=== PATIENT | female | born 1955 | race Caucasian/White ===

== ENCOUNTER 2018-09-28 12:10 | Emergency (ER) | payer MEDICARE ==
[~2018-09-28] VITALS: Ht 175.3 cm; Wt 63.5 kg
[~2018-09-28 12:10] MED LIST: ATIVAN1 MG PO; NORCO 10-325 T1 EACH PO; PERCOCET 10-321 EACH PO; PROZAC40 MG PO; ROBAXIN-750750 MG PO
--- NOTE | 2018-09-28 13:32 | Diagnostic Imaging Report ---
Exam: Left wrist radiographs - 3 views. History: Fall Comparison: None. Findings: There is a minimally displaced, mildly dorsally angulated, likely comminuted fracture of the distal radial metaphysis. There is possible intra-articular extension. Mild surrounding soft tissue edema. Carpal alignment is maintained. There is a minimally displaced fracture of the ulnar styloid process. Small high density fragment along the dorsal wrist may reflect sequela of prior trauma without definite donor site. Impression: Minimally displaced, dorsally angulated, likely comminuted fracture of the distal radial metaphysis. Possible intra-articular extension. Minimally displaced fracture of the ulnar styloid process. Small high density fragment along the dorsal wrist may reflect sequela of prior carpal trauma or tiny avulsion fracture, although without definite donor site. Signed by: Dr. Flor Roy MD on 09/28/2018 1:28 PM
--- NOTE | 2018-09-28 13:36 | Diagnostic Imaging Report ---
Exam: Left elbow radiographs - 3 views History: Trauma, fall Comparison: None. Findings: No evidence of displaced fracture or malalignment. Possible small joint effusion. Impression: No evidence of displaced fracture or malalignment. Possible small elbow joint effusion. If clinical concern for occult fracture, follow up radiographs may be obtained in 7-10 days. Signed by: Dr. Flor Roy MD on 09/28/2018 1:32 PM
[2018-09-28 13:53] VITALS: BP 113/74
== END 2018-09-28 14:00 | disposition home or self-care (01) ==
LOC: ER 12:10
DX: M25.532 Pain in left wrist (principal); S52.352A Displaced comminuted fracture of shaft of radius, left arm, initial encounter for closed fracture; S52.202A Unspecified fracture of shaft of left ulna, initial encounter for closed fracture; W01.0XXA Fall on same level from slipping, tripping and stumbling without subsequent striking against object, initial encounter; Y92.008 Other place in unspecified non-institutional (private) residence as the place of occurrence of the external cause; M79.7 Fibromyalgia; K58.9 Irritable bowel syndrome, unspecified; Z98.84 Bariatric surgery status; Z98.1 Arthrodesis status
CPT/HCPCS: 99283

== ENCOUNTER 2019-07-20 11:38 | Observation (INO) | payer MEDICARE ==
[~2019-07-20] VITALS: Ht 175.3 cm; Wt 79.4 kg
[2019-07-20] VITALS (7 sets, daily range): BP systolic 149–173; BP diastolic 76–85
--- OUTSIDE RECORDS SUMMARY | 2019-07-20 11:40 | XMS REPORT ---
Author Author [facility] Address Unknown Phone Unavailable Care Team Providers Care Night Worker Name Role Phone Mckayla GUSTAFSON Unavailable Unavailable Problems This patient has no known problems. Allergies, Adverse Reactions, Alerts This patient has no known allergies or adverse reactions. Medications This patient has no known medications. Results Test Description Test Time Test Comments Text Results Atomic Results Result Comments ELBOW LEFT COMPLETE 2018-09-28 13:27:00 [place] [address] Patient Name: IVANNA JONES MR #: [id number] : 1955 Age/Sex: 62/F Req #: [id number] Adm Physician: Ordered by: KULDEEP SIMON SUPERVISOR POWER REACTOR Report #: [id number] Location: ER Room/Bed: Procedure: [id number] DX/ELBOW LEFT COMPLETE Exam Date: 09/28/18 Exam Time: 1245 REPORT STATUS: Signed Exam: Left elbow radiographs - 3 views History: T rauma, fall Comparison: None. Findings: No evidence of displaced fracture or malalignment. Possible small joint effusion. Impression: No evidence of displaced fracture or malalignment. Possible small elbow joint effusion. If clinical concern for occult fracture, follow up radiographs may be obtained in 7-10 days. Signed by: Dr. Moon Sierra MD on 09/28/2018 1:32 PM Dictated By: MOON SIERRA MD [id number] Transcribed By: NILESH on 09/28/18 133 COPY TO: KULDEEP SIMON SUPERVISOR POWER REACTOR WRIST COMPLETE LEFT 2018-09-28 13:19:00 [facility] [address] [address] Patient Name: IVANNA JONES MR #: [id number] : 1955 Age/Sex: 62/F Req #: [id number] Adm Physician: Ordered by: JOSH GUSTAFSON MD Report #: [id number] Location: ER Room/Bed: Procedure: [id number] DX/WRIST COMPLETE LEFT Exam Date: 09/28/18 Exam Time: 1245 REPORT STATUS: Signed Exam: Left wrist radiographs - 3 views. History: Fall Comparison: None. Findings: There is a minimally displaced, mildly dorsally angulated, likely comminuted fracture of the distal radial metaphysis. There is possible intra-articular extension. Mild surrounding soft tissue edema. Carpal alignment is maintained. There is a minimally displaced fracture of the ulnar styloid process. Small high density fragment along the dorsal wrist may reflect sequela of prior trauma without definite donor site. Impression: Minimally displaced, dorsally angulated, likely comminuted fracture of the distal radial metaphysis. Possible intra-articular extension. Minimally displaced fracture of the ulnar styloid process. Small high density fragment along the dorsal wrist may reflect sequela of prior carpal trauma or tiny avulsion fracture, although without definite donor site. Signed by: Dr. Moon Sierra MD on 09/28/2018 1:28 PM Dictated By: MOON SIERRA MD 1328 Transcribed By: NILESH on 09/28/18 [id number] COPY TO: JOSH GUSTAFSON MD
[2019-07-20] MEDS ORDERED: SODIUM CHLORIDE 0.9% 1000ML 1,000 ML IV STA (11:56)
[2019-07-20] MEDS ORDERED: ONDANSETRON HCL INJ 2MG/ML 2ML 2 MG/ML VIAL IV NR (12:00)
--- NOTE | 2019-07-20 12:06 | NUR ---
PER LAB URINE SPILLED, LID NOT TIGHT
[2019-07-20 12:35] LABS: BASOPHILS % 0.2 % (0.0-1.0); EOSINOPHILS % 8.6 % (0.0-6.0); HEMATOCRIT 46.7 % (34.2-44.1); HEMOGLOBIN 13.9 g/dL (12.0-16.0); LYMPHOCYTES # (AUTO) 3.3 (1.0-3.2); LYMPHOCYTES % 30.2 % (18.0-39.1); MEAN CORPUSCULAR HEMOGLOBIN 22.1 pg (28-32); MEAN CORPUSCULAR HGB CONC 29.8 g/dL (31-35); MEAN CORPUSCULAR VOLUME 74.2 fL (81-99); MONOCYTES # (AUTO) 0.8 (0.2-0.8); MONOCYTES % 6.8 % (4.4-11.3); PLATELET COUNT 337 x10e3/uL (140-360); RED BLOOD COUNT 6.29 x10e6/uL (3.6-5.1); RED CELL DISTRIBUTION WIDTH 20.1 % (11.7-14.4)
[2019-07-20 12:49] LABS: ALANINE AMINOTRANSFERASE 15 IU/L (0-55); ALBUMIN 4.4 g/dL (3.5-5.0); ALBUMIN/GLOBULIN RATIO 1.3 (0.8-2.0); ALKALINE PHOSPHATASE 84 IU/L (40-150); AMYLASE 40 U/L (25-125); ANION GAP 16.9 mmol/L (8-16); BLOOD UREA NITROGEN < 5 mg/dL (7-26); CALCIUM 9.9 mg/dL (8.4-10.2); CARBON DIOXIDE 28 mmol/L (22-29); CHLORIDE 91 mmol/L (98-107); CREATINE KINASE 69 IU/L (29-168); CREATININE, SERUM 0.64 mg/dL (0.57-1.11); EST GLOMERULAR FILTRATION RATE > 60 ML/MIN (60-); GLUCOSE 108 mg/dL (74-118); LIPASE 39 U/L (8-78); POTASSIUM 3.9 mmol/L (3.5-5.1); SODIUM 132 mmol/L (136-145)
[2019-07-20 12:50] LABS: BUN/CREATININE RATIO 8 (6-25)
--- NOTE | 2019-07-20 13:17 | Diagnostic Imaging Report ---
EXAMINATION: CHEST SINGLE (PORTABLE) COMPARISON: None INDICATION: Back pain, nausea, vomiting ^ERMD ORDER ^[id number] ^1248 ^Y DISCUSSION: Frontal view of the chest obtained at 1248 hours. HEART AND MEDIASTINUM: The cardiomediastinal silhouette is unremarkable. LINES: None. LUNGS: The lungs are well inflated and clear. No pneumonia or pulmonary edema. PLEURA: No pleural effusion or pneumothorax. BONES AND SOFT TISSUES: Sclerotic lesion in the distal left clavicle measures 9 mm suggestive of a bone island. The soft tissues are normal. IMPRESSION: No acute cardiopulmonary disease. Signed by: Dr. Nito Munoz MD on 07/20/2019 1:14 PM
[2019-07-20 13:53] LABS: BILIRUBIN,URINE NEGATIVE (NEGATIVE); CLARITY,URINE CLEAR (CLEAR); COLOR,URINE YELLOW (YELLOW); KETONES,URINE NEGATIVE (NEGATIVE); LEUKOCYTE ESTERASE ,URINE NEGATIVE (NEGATIVE); NITRITE,URINE NEGATIVE (NEGATIVE); PROTEIN,URINE DIPSTICK NEGATIVE (NEGATIVE); URINE UROBILINOGEN 0.2 mg/dL (0.2 - 1)
[2019-07-20 13:57] LABS: BENZODIAZEPINES SCREEN,URINE POSITIVE (NEGATIVE)
[2019-07-20 13:58] LABS: AMPHETAMINES SCREEN,URINE N (NEGATIVE); PHENCYCLIDINE SCREEN,URINE N (NEGATIVE)
[2019-07-20 14:01] LABS: BACTERIA,URINE RARE /HPF; EPITHELIAL CELLS,URINE FEW /LPF; RBC,URINE 0-5 /HPF (0-5); WBC,URINE (MAN) 0-5 /HPF (0-5)
--- NOTE | 2019-07-20 14:11 | Diagnostic Imaging Report ---
CT Abdomen And Pelvis with Intravenous Contrast INDICATION: 7 hour car ride. Nausea, vomiting, diarrhea ^abd pain TECHNIQUE: Thin collimation axial images obtained from the diaphragm to the level of the pubic symphysis following the uneventful administration of 100 cc of low osmolar, nonionic intravenous contrast. Dose reduction techniques used: Automated exposure control, adjustment of the mAs and/or kVp according to patient size, standardized low-dose protocol, and/or iterative reconstruction technique. RADIATION DOSE: Total DLP: 222.24 mGy*cm Estimated effective dose: (DLP x 0.015 x size factor) mSv CTDIvol has been reviewed. It is below the limits set by the Radiation Protocol Committee (RPC). COMPARISON: None. ABDOMEN FINDINGS: Images are mildly motion degraded. Lung Bases: Trace lingula or atelectasis. The heart is mildly enlarged. No pericardial or pleural effusions. Liver: Normal attenuation. No evidence for mass. Gallbladder: Present and appears normal. No biliary ductal dilatation. Pancreas: Normal attenuation without mass or ductal dilatation. Spleen: Normal in size. No evidence of mass.. Adrenal Glands: No evidence for mass. Kidneys: Right: Normal enhancement. Lower pole cyst measures 8 mm. No hydronephrosis. Left: Normal enhancement. No soft tissue mass. No hydronephrosis. Lymph Nodes: No enlarged abdominal or periaortic lymph nodes. Aorta: Diffusely calcified and mildly tortuous. Maximum diameter is 2.4 cm PELVIS FINDINGS: Bowel: Stomach: Collapsed and contains chain sutures. Small Bowel: Chain sutures in the proximal small bowel. No evidence of dilatation or abnormal mural enhancement Large Bowel: Collapsed. No significant stool burden.. Appendix: Not visualized and may be absent or collapsed. Bladder: Well distended and normal. The uterus is absent. No adnexal mass Peritoneum/retroperitoneum: No free fluid or fluid collection.. Bones: Minimal degenerative changes of the spine. No focal osseous lesions. IMPRESSION: 1. Postoperative changes of the stomach and small bowel suggestive of bariatric surgery. No evidence of bowel obstruction or inflammation. Nonvisualization of the appendix if present 2. Atherosclerosis and mild aortic tortuosity. Signed by: Dr. Nito Munzo MD on 07/20/2019 2:08 PM
[2019-07-20] MEDS ORDERED: ASPIRIN 81 MG CHEW TAB PO ONE (14:15)
[2019-07-20] MEDS ORDERED: METHOCARBAMOL750 MG (14:17)
[2019-07-20] MEDS ORDERED: GABAPENTIN300 MG PO ×2 (14:17→20:04)
[2019-07-20] MEDS ORDERED: TRAZODONE HCL50 MG (14:17)
[2019-07-20] MEDS ORDERED: LINZESS290 MCG PO (14:17)
[2019-07-20] MEDS ORDERED: TYLENOL # 31 EA (14:17)
[2019-07-20] MEDS ORDERED: OXYCODONE-ACET1 EAC3 (14:17)
[2019-07-20] MEDS: SODIUM CHLORIDE 0.9% 1000ML 1,000 ML IV SCH ×2 (14:18→15:00)
[2019-07-20] MEDS ORDERED: HYDROCODONE/APAP 7.5MG-325MG 1 EA TAB PO PRN (14:30)
[2019-07-20] MEDS ORDERED: HYDRALAZINE HCL 20 MG/ML VIAL IV PRN (14:30)
[2019-07-20] MEDS ORDERED: DIPHENHYDRAMINE HCL INJ 50 MG/ML VIAL IV PRN (14:30)
[2019-07-20] MEDS ORDERED: PROMETHAZINE 25MG/ NS 50ML (IV) IV PRN (14:30)
--- NOTE | 2019-07-20 14:40 | NUR ---
RCD PT FROM ER BY BED PT IS ALERT AND ORIENTED VITALS CHECKED PT C/O PAIN ON THE BACK 01/27 ,PAIN MEDS GIVEN ADMISSION ASSESSMENT AND HISTORY DONE IV PATENT BY SALINE FLUSH STARTED IV FLUID NS 100 ML /HR ,INSTRUCTED PT REGARDING HOSPITAL POLICY AND ROUTINE BED LOW AND LOCKED CALL LIGHT IN REACH
[2019-07-20] MEDS ORDERED: SODIUM CHLORIDE 0.9% 50ML 50 ML ONE (15:10)
[2019-07-20] MEDS ORDERED: IOPAMIDOL 370 MG/ML 200 ML INFUS..BTL INJ ONE (15:11)
[2019-07-20] MEDS: ONDANSETRON HCL INJ 2MG/ML 2ML 2 MG/ML VIAL IV PRN (15:33)
[2019-07-20] MEDS: FAMOTIDINE 20 MG/2 ML VIAL IV SCH (17:00)
[2019-07-20 17:15] LABS: CREATINE KINASE MB 1.5 ng/mL (0-5.0)
--- NOTE | 2019-07-20 18:40 | NUR ---
PT RESTING ON BED BED SIDE REPORT GIVEN TO ONCOMING NURSE
[2019-07-20] MEDS ORDERED: ZOLPIDEM TARTRATE 5 MG TAB PO PRN (21:00)
[2019-07-20] MEDS: LORAZEPAM 1 MG TAB PO SCH (21:22)
[2019-07-20] MEDS: HYDROCODONE/APAP 10MG-325MG TAB PO PRN (21:22)
[2019-07-20] MEDS: ACETAMINOPHEN 325 MG TAB PO PRN (21:23)
[2019-07-21] VITALS (8 sets, daily range): BP systolic 130–160; BP diastolic 65–78
[2019-07-21] MEDS: ONDANSETRON HCL INJ 2MG/ML 2ML 2 MG/ML VIAL IV PRN ×3 (02:09→21:04)
[2019-07-21] MEDS: ACETAMINOPHEN 325 MG TAB PO PRN ×2 (03:26→20:13)
[2019-07-21] MEDS: HYDROCODONE/APAP 10MG-325MG TAB PO PRN ×4 (03:26→22:25)
[2019-07-21] MEDS: SODIUM CHLORIDE 0.9% 1000ML 1,000 ML IV SCH (03:33)
[2019-07-21 05:18] LABS: BASOPHILS % 0.3 % (0.0-1.0); EOSINOPHILS # (AUTO) 0.5 (0.0-0.4); EOSINOPHILS % 4.5 % (0.0-6.0); HEMOGLOBIN 12.2 g/dL (12.0-16.0); LYMPHOCYTES # (AUTO) 2.6 (1.0-3.2); LYMPHOCYTES % 23.8 % (18.0-39.1); MEAN CORPUSCULAR HEMOGLOBIN 22.4 pg (28-32); MEAN CORPUSCULAR HGB CONC 29.8 g/dL (31-35); MEAN CORPUSCULAR VOLUME 75.4 fL (81-99); MONOCYTES % 9.1 % (4.4-11.3); NEUTROPHILS # (AUTO) 6.8 (2.1-6.9); PLATELET COUNT 312 x10e3/uL (140-360); RED BLOOD COUNT 5.44 x10e6/uL (3.6-5.1); RED CELL DISTRIBUTION WIDTH 19.2 % (11.7-14.4)
[2019-07-21 05:40] LABS: ANION GAP 13.3 mmol/L (8-16); BLOOD UREA NITROGEN 5 mg/dL (7-26); BUN/CREATININE RATIO 9 (6-25); CALCIUM 9.1 mg/dL (8.4-10.2); CARBON DIOXIDE 26 mmol/L (22-29); CHLORIDE 89 mmol/L (98-107); CREATININE, SERUM 0.57 mg/dL (0.57-1.11); EST GLOMERULAR FILTRATION RATE > 60 ML/MIN (60-); GLUCOSE 118 mg/dL (74-118); POTASSIUM 3.3 mmol/L (3.5-5.1); SODIUM 125 mmol/L (136-145)
[2019-07-21 06:07] LABS: CREATINE KINASE MB 1.9 ng/mL (0-5.0)
--- NOTE | 2019-07-21 07:00 | NUR ---
BEDSIDE SHIFT REPORT RECEIVED FROM THE AUDITOR MEDICAL CLAIMS RN. EDUCATED PT ABOUT FALL PRECAUTIONS. CALL LIGHT WITH IN EASY REACH. INSTRUCTED PT TO USE CALL LIGHT FOR ALL THE NEEDS. PT VERBALIZED UNDERSTANDING. BED IS LOW AND LOCKED. SIDE RAILS X2. BED ALARM IS ON. PT DENIES NEEDS AT THIS TIME.
[2019-07-21] MEDS: GABAPENTIN 300 MG CAP PO SCH (08:29)
[2019-07-21] MEDS: FAMOTIDINE 20 MG/2 ML VIAL IV SCH ×2 (08:29→17:14)
--- NOTE | 2019-07-21 08:30 | NUR ---
PAGED DR. MCFADDEN AND INFORMED PT NA AND K LEVELS.
[2019-07-21] MEDS: LORAZEPAM 1 MG TAB PO SCH ×2 (09:52→20:12)
[2019-07-21 10:15] LABS: ANION GAP 13.2 mmol/L (8-16); BLOOD UREA NITROGEN < 5 mg/dL (7-26); CALCIUM 9.3 mg/dL (8.4-10.2); CARBON DIOXIDE 28 mmol/L (22-29); CHLORIDE 88 mmol/L (98-107); CREATININE, SERUM 0.56 mg/dL (0.57-1.11); EST GLOMERULAR FILTRATION RATE > 60 ML/MIN (60-); GLUCOSE 106 mg/dL (74-118); POTASSIUM 3.2 mmol/L (3.5-5.1); SODIUM 126 mmol/L (136-145)
[2019-07-21 10:18] LABS: BUN/CREATININE RATIO 9 (6-25)
[2019-07-21] MEDS ORDERED: POTASSIUM CHLORIDE 20 MEQ TAB CR PO ONE (11:30)
[2019-07-21] MEDS: METHOCARBAMOL 750 MG TAB PO SCH ×3 (12:30→20:12)
[2019-07-21] MEDS: ENOXAPARIN SOD INJ 40 MG/0.4 ML SYR SC SCH (17:14)
--- NOTE | 2019-07-21 18:10 | History and Physical ---
CHIEF COMPLAINT: Abdominal pain, nausea and vomiting. No reports of any chest pain. HISTORY OF PRESENT ILLNESS: This is a 63-year-old female, who apparently has chronic pain, takes significant amount of narcotics at home as well as sedating medications. Of note, she reports having history of fibromyalgia, being managed by her primary care physician, comes into the emergency room with complaints of abdominal pain, nausea, vomiting, and generalized pain throughout. The patient reports that her pain is constant and this has been ongoing for several years now, being managed by the PCP. As for abdominal pain describes more epigastric, but currently no more pain. She reports having some nausea and vomiting, but that all resolved. She did report having some diarrhea, but now today she had one mushy stool and has improved. She reports having decreased oral intake as well. In relation to her chest pain, it seems to be more atypical. She reports that she did not really truly have chest pain, she felt more epigastric abdominal pain. Cardiology has been consulted. The patient was seen and evaluated at bedside on the medical floor, currently doing well with no other issues at this time. REVIEW OF SYSTEMS: Pertinent positives: Questionable chest pain. Abdominal pain with nausea, vomiting, diarrhea. Pertinent negatives: Denies any palpitation, dysuria, hematuria, frequency, urgency, lightheadedness, dizziness, cough, congestion, fever, or any other complaints. The rest of 14-point review of systems are reviewed with the patient and are negative. ALLERGIES: FLOXIN, CIPROFLOXACIN AND IBUPROFEN. HOME MEDICATIONS: Robaxin 750 mg p.o. q.i.d., Linzess 290 mcg daily, gabapentin 300 mg in the morning, 600 mg at night, [place] 10 one tab every 4 hours as needed for pain, Ativan 1 mg p.o. b.i.d. PAST MEDICAL HISTORY: Chronic pain syndrome, has a history of fibromyalgia. PAST SURGICAL HISTORY: Reports none. FAMILY HISTORY: Hypertension, diabetes. SOCIAL HISTORY: No drugs. No alcohol. Does not smoke. Good social support. PHYSICAL EXAMINATION: VITAL SIGNS: Temperature is 98, pulse 72, respiratory rate is 18, blood pressure is 160/78, pulse ox 95% on room air. GENERAL: Not in acute distress. Alert and oriented x3. Cooperative on examination. HEENT: Head; normocephalic, atraumatic. Eyes; pupils are equal, round, and reactive to light bilaterally. Extraocular movements intact bilaterally. Throat; no evidence of erythema or exudates in the posterior pharynx. Has poor dentition. NECK: Supple. Good range of motion. PULMONARY: Clear to auscultation bilaterally. No wheezing, no rales, no rhonchi, no crackles appreciated. CARDIOVASCULAR: Positive S1 and S2. No murmurs, rubs, or gallops appreciated. ABDOMEN: Soft, nondistended, and nontender to palpation. Bowel sounds present. MUSCULOSKELETAL: Strength is 5/5 throughout. No evidence of any muscle deficits on examination. No weakness appreciated. NEUROLOGIC: Cranial nerve 2 through 12 grossly intact. No evidence of any neurological deficits on exam. SKIN: Intact. Warm to touch. Good cap refill. PSYCHIATRIC: Normal affect and mood. EXTREMITIES: No edema. Good range of motion throughout. LABORATORY FINDINGS: Show white count 11, hemoglobin 12.2, hematocrit of 41, platelets of 312. Chemistry; sodium 126, potassium 3.2, chloride 88, bicarb 20, anion gap of 13, BUN is 5, creatinine is 0.56, glucose 106, calcium 9.3. LFTs within normal range. Troponins are all negative, albumin 4.4, lipase is 39. Urine drug screen positive for benzodiazepines. Urinalysis was negative. MICROBIOLOGY: None. IMAGING DATA: Chest x-ray was negative. CT abdomen and pelvis shows postoperative changes of the stomach and small bowel, suggestive of bariatric surgery. No evidence of bowel obstruction or inflammation. Nonvisualization of the appendix is present. Aortic sclerosis and mild aortic tortuosity. IMPRESSION: 1. Chest pain, likely atypical in nature. 2. Viral gastroenteritis. 3. Nausea, vomiting and diarrhea-resolved. 4. Decreased oral intake. 5. Hyponatremia. 6. Hypokalemia. PLAN: At this time, in relation to her chest pain, it seems to be more atypical in nature and less likely to be cardiac in nature. Cardiac enzymes were negative. Continue cardioprotective medications and Cardiology was consulted. As for her viral gastroenteritis, we will continue with IV fluids, antinausea medication and pain control. Her diarrhea improved. Her white count is stable. Continue with clear liquid diet. Advance as tolerated. In relation to her hyponatremia, I am not sure if this is a chronic finding or acute, as on admission her sodium was 132 and then downtrended to 126. Not sure if there is a component of SIADH contributing to that finding, but we will go ahead and get a urine sodium, urine osmolality, serum osmolality. Continue with IV fluids. Replace potassium. Get a.m. labs including magnesium level. Put on Lovenox for DVT prophylaxis. PT and OT evaluation. I did resume all her home medications at this time. Department Chair is just Cardiology. MD YOLY Astorga/JOYCELYN /[id number]
--- NOTE | 2019-07-21 19:00 | NUR ---
PAGED DR. MCFADDEN AND UPDATED THE SODIUM LEVEL.
--- NOTE | 2019-07-21 19:01 | NUR ---
BEDSIDE SHIFT REPORT GIVEN TO THE SENIOR COMPLIANCE ANALYST RN. PT DENIED FURTHER NEEDS.
--- NOTE | 2019-07-21 19:25 | NUR ---
RECEIVED PATIENT. PATIENT IS AAOX3, RESTING IN BED. RESP EVEN AND UNLABORED. NO ACUTE DISTRESS NOTED. TELE IN PLACE. CALL LIGHT WITHIN REACH. INSTRUCT TO CALL FOR ASSISTANCE. BED LOW/LOCKED. CONTINUE TO MONITOR CLOSELY
[2019-07-21] MEDS ORDERED: GABAPENTIN 300 MG CAP PO SCH (21:00)
--- NOTE | 2019-07-21 21:00 | NUR ---
OBTAINED CONSENT FORM FOR STRESS TEST
[2019-07-22 00:03] VITALS: BP 110/59
[2019-07-22] MEDS: SODIUM CHLORIDE 0.9% 1000ML 1,000 ML IV SCH (00:30)
--- NOTE | 2019-07-22 00:37 | Consultation ---
DATE OF CONSULTATION: Cardiac consultation REASON FOR CONSULTATION: Chest pain. HISTORY OF PRESENT ILLNESS: Unfortunate 63-year-old lady, who is known with chronic pain and fibromyalgia. She takes narcotic and other medication to ease her pain. Her pain is very severe. She is followed by her PCP. She came to this institution complaining of nausea, vomiting, and generalized aches and pain. She is also complaining of severe chest pain. The chest pain with typical and atypical characteristic. She is feeling better today with resolution of her vomiting. She still have some nausea. Regarding her chest pain, she cannot describe it. It is very vague. Sometimes it is worse with activity, sometimes it can come anytime. There is no pleuritic nor pericardiac component of chest pain. There is no orthopnea. There are no congestive heart failure symptoms. There is palpitation, but no syncope. Dizzy spells frequently. Leg edema at times. REVIEW OF SYSTEMS: Extensive to all systems, will be summarized for clarity. GENERAL: No fever, no chills. HEENT: No vision, no hearing problem. PULMONARY/CARDIAC: As per acute illness. GI: Abdominal pain, nausea, vomiting, diarrhea alternating with constipation. No hematemesis. No melena. : Increased frequency of urination. MUSCULOSKELETAL: Aches and pain all over. The patient cannot tolerate her pain. Her pain is very severe. HEMATOLOGY: No easy bruising or bleeding. MUSCULOSKELETAL: Aches and pain all over. NEUROLOGICAL: No localized deficit. No seizure activity. ALLERGIES: FLOXIN, IBUPROFEN. HOME MEDICATIONS: Include gabapentin 300 mg in the morning, 600 at night; hydrocodone 10/325 one tablet a day, Linzess, Robaxin, and other p.r.n. medication. PAST MEDICAL HISTORY: 1. Chronic pain and fibromyalgia. 2. Smoker. 3. Gastric bypass surgery. 4. Hysterectomy. 5. Other minor illnesses. SOCIAL HISTORY: She is . She is smoker, but she does not drink alcohol. Good social support. FAMILY HISTORY: Father of asbestosis at age 70, he had bypass surgery at age 60. Mother following a fall and fractured hip, possible pulmonary embolism. No brother. One healthy sister. One son who is doing well. One daughter at age 57 with sepsis and pneumonia. PHYSICAL EXAMINATION: VITAL SIGNS: Height of 5 feet 9 inches, weight of 175 pounds. Blood pressure 150/70, heart rate of 70, respiratory rate of 18. HEENT: Pupils are reactive. NECK: No elevation of jugular venous pulsation. No bruit. CHEST: Clear to auscultation and percussion. HEART: PMI in 5th intercostal space. Normal first and second heart sounds. ABDOMEN: Soft with good bowel sounds. No organomegaly. EXTREMITIES: No cyanosis, no clubbing, no edema. NEUROLOGICAL: Awake, alert, oriented. Neck is supple. No motor deficits. SKIN: No rashes. LABORATORY DATA: Sodium of 126, potassium 3.2, BUN of 5, creatinine 0.56. White blood cell count of 11,000, hemoglobin of 12.2, hematocrit 41%, and platelet count of 312,000. CKs are normal. Chest x-ray, no major abnormality. EKG, normal sinus rhythm with frequent PACs. LVH noted. Chest x-ray by report showed no acute changes with the presence of sclerotic lesion in the distal left clavicle suggestive of bone island. IMPRESSION AND PLAN: 1. Chest pain with typical and atypical characteristic, but more it looks atypical. 2. Smoker. 3. Family history of coronary artery disease. 4. Chronic pain. 5. Hyponatremia and electrolyte imbalance. 6. Nausea and vomiting. Cardiac silverio, the patient cannot exercise because of her pain and ache, so we will do nuclear cardiac stress test. We will check an echocardiogram to evaluate her left ventricular function and abnormality noted on her EKG, namely LVH. Differential diagnosis are discussed and explained. Questions are answered. MD ANU Cary/JOYCELYN /[id number]
[2019-07-22] MEDS: HYDROCODONE/APAP 10MG-325MG TAB PO PRN ×2 (04:40→13:07)
[2019-07-22 04:56] VITALS: BP 135/70
[2019-07-22 05:06] LABS: BASOPHILS % 0.2 % (0.0-1.0); EOSINOPHILS # (AUTO) 0.1 (0.0-0.4); EOSINOPHILS % 1.3 % (0.0-6.0); HEMATOCRIT 41.9 % (34.2-44.1); HEMOGLOBIN 12.4 g/dL (12.0-16.0); LYMPHOCYTES # (AUTO) 3.3 (1.0-3.2); MEAN CORPUSCULAR HEMOGLOBIN 22.1 pg (28-32); MEAN CORPUSCULAR HGB CONC 29.6 g/dL (31-35); MEAN CORPUSCULAR VOLUME 74.8 fL (81-99); MONOCYTES # (AUTO) 0.9 (0.2-0.8); MONOCYTES % 10.3 % (4.4-11.3); NEUTROPHILS # (AUTO) 4.2 (2.1-6.9); NEUTROPHILS % 49.1 % (38.7-80.0); PLATELET COUNT 345 x10e3/uL (140-360); RED CELL DISTRIBUTION WIDTH 19.3 % (11.7-14.4)
[2019-07-22 05:42] LABS: ALANINE AMINOTRANSFERASE 13 IU/L (0-55); ALBUMIN 3.7 g/dL (3.5-5.0); ALBUMIN/GLOBULIN RATIO 1.4 (0.8-2.0); ALKALINE PHOSPHATASE 66 IU/L (40-150); ANION GAP 12.6 mmol/L (8-16); BLOOD UREA NITROGEN < 5 mg/dL (7-26); CALCIUM 9.3 mg/dL (8.4-10.2); CARBON DIOXIDE 28 mmol/L (22-29); CHLORIDE 96 mmol/L (98-107); CHOL/HDL RATIO 3.7 (3.0-3.6); CHOLESTEROL 213 MD/DL (0-199); EST GLOMERULAR FILTRATION RATE > 60 ML/MIN (60-); GLUCOSE 101 mg/dL (74-118); HDL CHOLESTEROL 57 MG/DL (40-60); LDL CHOLESTEROL 135 MG/DL (60-130); POTASSIUM 3.6 mmol/L (3.5-5.1); SODIUM 133 mmol/L (136-145); TRIGLYCERIDES 104 MG/DL (0-149)
[2019-07-22 05:43] LABS: BUN/CREATININE RATIO 8 (6-25)
[2019-07-22 06:04] LABS: THYROID STIMULATING HORMONE 1.486 uIU/mL (0.350-4.940)
--- NOTE | 2019-07-22 07:00 | NUR ---
BEDSIDE SHIFT REPORT RECEIVED FROM THE GARAGE HAND RN. EDUCATED PT ABOUT FALL PRECAUTIONS. CALL LIGHT WITH IN EASY REACH. INSTRUCTED PT TO USE CALL LIGHT FOR ALL THE NEEDS. PT VERBALIZED UNDERSTANDING. BED IS LOW AND LOCKED. SIDE RAILS X2. PT DENIES NEEDS AT THIS TIME.
[2019-07-22] MEDS ORDERED: LINACLOTIDE 145 MCG CAPSULE PO SCH (07:30)
[2019-07-22 08:00] VITALS: BP 102/52
--- NOTE | 2019-07-22 08:00 | NUR ---
PAGED NUCLEAR MEDS REGARDING PT NUCLEAR STRES STEST. DO NOT ADMINISTER MORNING MEDS PER NUCLEAR MEDS. INFORMED THE SAME TO DR. MCFADDEN
--- NOTE | 2019-07-22 08:15 | NUR ---
Pt pending ECHO and stress test today.
[2019-07-22 08:36] VITALS: BP 102/52
[2019-07-22] MEDS: FAMOTIDINE 20 MG/2 ML VIAL IV SCH ×2 (09:00→17:45)
--- NOTE | 2019-07-22 10:50 | NUR ---
PT OFF UNIT FOR PROCEDURE IN SAFE CONDITION.
--- NOTE | 2019-07-22 11:05 | NUR ---
Spoke with Dr. Bernal regarding dc plan. He stated if stress test negative, pt will discharge home.
[2019-07-22] MEDS ORDERED: REGADENOSON 0.4 MG/5 ML SYR IV ONE (12:28)
--- NOTE | 2019-07-22 12:54 | NUR ---
PT NOT IN ROOM TO COMPLETE DPA
[2019-07-22] MEDS: METHOCARBAMOL 750 MG TAB PO SCH ×3 (13:00→17:45)
[2019-07-22] MEDS: LORAZEPAM 1 MG TAB PO SCH (13:06)
[2019-07-22] MEDS: GABAPENTIN 300 MG CAP PO SCH (13:06)
--- NOTE | 2019-07-22 14:15 | NUR ---
PT BACK TO UNIT AFTER PROCEDURE. DENIES NEEDS AT THIS TIME
--- NOTE | 2019-07-22 14:30 | NUR ---
PT REFUSED TO WEAR TELE BOX AND SAID WANTS TO GO HOME. PAGED DR. TOTH REGARDING PT D/C. WILL UPDATE LATER ABOUT D/C PER THE . INFORMED THE SAME TO THE PT.
[2019-07-22] MEDS ORDERED: ASPIRIN81 MG (15:07)
[2019-07-22] MEDS ORDERED: LIPITOR20 MG (15:07)
[2019-07-22] MEDS: ENOXAPARIN SOD INJ 40 MG/0.4 ML SYR SC SCH (17:00)
--- NOTE | 2019-07-22 18:00 | NUR ---
SHERRY TO D/C PT PER DR. MCFADDEN AND DR. TOTH.
--- NOTE | 2019-07-22 18:30 | NUR ---
PT DISCHARGED HOME SAFELY WITH . PT REFUSED ASSISTANCE. TELE AND IV REMOVED. TIP INTACT. DRESSING APPLIED. PT DENIED FURTHER NEEDS.
--- NOTE | 2019-07-22 18:38 | Myoview Stress Test ---
DATE OF STUDY: 07/21/2019 18:20:00 Stress Test - Treadmill ONLY TITLE OF REPORT: Lexiscan nuclear stress test INDICATION FOR STUDIES: Chest pain and inability to exercise. TECHNICAL DETAILS: After risks, benefits, pros and cons of Lexiscan nuclear stress test were explained to the patient, the patient agreed to proceed. She was brought down to the nuclear lab, where she received an 11 millicuries dose of technetium-99m tetrofosmin intravenously and after 40 minutes, the patient was taken to the [employer] SPECT camera for resting myocardial perfusion imaging. Afterwards, she was brought to the stress lab where 12-lead EKG monitoring and blood pressure monitoring were obtained. A dose of Lexiscan 0.4 mg followed by 32 millicuries dose of technetium-99m tetrofosmin intravenously was given through the IV. Resting heart rate went from a baseline of 76 beats per minute to a maximum of 107 beats per minute. Blood pressure went from a baseline of 127/62 to 132/59, which is an appropriate hemodynamic response. Underlying EKG revealed normal sinus rhythm, normal axis and no ST-T wave changes and with Lexiscan infusion, there were no ischemic EKG changes or symptoms. After 25 minutes, the patient was then taken to the SPECT camera for stress myocardial perfusion imaging. FINDINGS: 1. Resting myocardial perfusion imaging reveals largely normal tracer uptake. 2. Stress myocardial perfusion imaging reveals the presence of a hard adjacent GI artifact which is creating some filter-type artifact towards the inferolateral alva. The perfusion appears probably normal at stress. 3. The following gated measurements were obtained. End-diastolic volume was 61 mL, end-systolic volume 25 mL, calculated left ventricular ejection fraction is 58% with normal wall motion. CONCLUSIONS: 1. Probably normal myocardial perfusion imaging study revealing normal tracer uptake and no scintigraphic areas of ischemia. Sensitivity of the stress test is limited some due to the presence and influence of adjacent GI artifact. 2. Normal left ventricular function with calculated ejection fraction of 58%. 3. Overall findings of the stress test compatible with a low-risk stress test. MD HEAVENLY Razo/JOYCELYN /[id number]
--- NOTE | 2019-07-24 11:47 | Discharge Summary ---
FINAL DISCHARGE DIAGNOSES: 1. Atypical chest pain with negative cardiac stress test. 2. Viral gastroenteritis. 3. Nausea, vomiting, and diarrhea-resolved, secondary to viral gastroenteritis. 4. Mild hyponatremia, resolved. 5. Hypokalemia, resolved. CONSULTANTS: Cardiology. PHYSICAL EXAMINATION: VITAL SIGNS: Temperature is 98.6, pulse 82, respiratory rate is 18, blood pressure is 135/70, pulse ox 94% on room air. LABORATORY FINDINGS: Show white count is 8.5, hemoglobin is 12, hematocrit of 41, platelets of 345. Chemistry; sodium 133, potassium 3.6, chloride 96, bicarb 20, anion gap of 12, BUN is 5, creatinine is 0.6, glucose 101, calcium 9.3, magnesium 1.7. LFTs within normal range. Total protein 6.4. Troponins were negative. Albumin 3.7. LDL was 135. TSH 1.4. Urinalysis was negative. Urine drug screen positive for benzodiazepines. MICROBIOLOGY: None. IMAGING STUDIES: Chest x-ray found to be negative. CT abdomen and pelvis shows postoperative changes in the stomach and small bowel suggestive of bariatric surgery. No evidence of bowel obstruction or inflammation. Nonvisualization of the appendix is present. Cardiac stress test, negative results. A 2D echo with an EF of 55% to 60%. HOSPITAL COURSE: This is a 63-year-old female, who came into the emergency room with complaints of underlying chest pain as well as abdominal pain, nausea, vomiting, and diarrhea. As for her chest pain, cardiac enzymes were found to be negative. EKG showed no acute findings. Echo was found to be 55% to 60%, and cardiac stress test was found to be negative. Cardiology was consulted. The patient was cleared for discharge by Cardiology. As for her viral gastroenteritis, her nausea, vomiting, diarrhea all resolved while here in the hospital stay. She had no more diarrhea prior to being discharged. She was on IV fluids. Started on clear liquid diet, advanced to regular diet, which she tolerated well. All her symptoms are resolved prior to being discharged. She was cleared for discharge home. On the day of discharge, vital signs were stable, labs reviewed and stable. The patient was seen, evaluated, examined thoroughly on the day of discharge, no other complaints. The patient verbalized understanding and agreed to plan of care. 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 MEDICATIONS: See med reconciliation form. DISPOSITION: To home. CONDITION: Stable. DIET: Heart healthy. In the event of any worsening symptoms, the patient was advised to come back to the ED for further evaluation. Discharge summary took greater than 35 minutes. MD YOLY Astorga/[email or web address] /[id number]
== END 2019-07-22 18:32 | disposition home or self-care (01) ==
LOC: ER 11:38 → ERHOLD 14:10 → MED/SURG2 14:52
PROVIDERS: ADMIT Internal Medicine; ATTEND Internal Medicine
DX: R07.89 Other chest pain (principal); A08.4 Viral intestinal infection, unspecified; E87.1 Hypo-osmolality and hyponatremia; E86.0 Dehydration; E87.6 Hypokalemia; F17.200 Nicotine dependence, unspecified, uncomplicated; Z82.49 Family history of ischemic heart disease and other diseases of the circulatory system
CPT/HCPCS: 36415 ×3; 71045; 74177; 78452; 80048; 80053 ×2; 80061; 80307; 81001; 82150; 82550 ×2; 82553 ×2; 83690; 83735; 84295; 84443; 84484 ×2; 85025 ×3; 93005; 93017; 93306; 97161; 99284; A9502; G0378 ×3; J0360; J1650; J2405 ×2; J2785; J7030 ×2; Q9967

== ENCOUNTER 2020-10-29 13:54 | Inpatient (IN) | payer MEDICARE ==
[2020-10-29] VITALS (9 sets, daily range): BP systolic 117–135; BP diastolic 61–73
[~2020-10-29] VITALS: Ht 170.2 cm; Wt 64.4 kg
[~2020-10-29 13:54] MED LIST changes: +ASPIRIN81 MG; +GABAPENTIN300 MG PO; +LINZESS290 MCG PO; +LIPITOR20 MG; +METHOCARBAMOL750 MG; +OXYCODONE-ACET1 EAC3; +TRAZODONE HCL50 MG; +TYLENOL # 31 EA
[2020-10-29 14:36] LABS: BASOPHILS % 0.2 % (0.0-1.0); EOSINOPHILS # (AUTO) 0.2 (0.0-0.4); EOSINOPHILS % 1.7 % (0.0-6.0); HEMATOCRIT 39.7 % (34.2-44.1); HEMOGLOBIN 11.9 g/dL (12.0-16.0); LYMPHOCYTES # (AUTO) 4.1 (1.0-3.2); MEAN CORPUSCULAR HEMOGLOBIN 24.9 pg (28-32); MEAN CORPUSCULAR VOLUME 83.2 fL (81-99); MONOCYTES # (AUTO) 0.7 (0.2-0.8); MONOCYTES % 8.2 % (4.4-11.3); NEUTROPHILS # (AUTO) 4.1 (2.1-6.9); NEUTROPHILS % 44.8 % (38.7-80.0); PLATELET COUNT 319 x10e3/uL (140-360); RED BLOOD COUNT 4.77 x10e6/uL (3.6-5.1)
[2020-10-29 14:55] LABS: ALANINE AMINOTRANSFERASE 11 IU/L (0-55); ALBUMIN 3.9 g/dL (3.5-5.0); ALBUMIN/GLOBULIN RATIO 1.3 (0.8-2.0); ALKALINE PHOSPHATASE 88 IU/L (40-150); ANION GAP 12.2 mmol/L (8-16); BLOOD UREA NITROGEN 7 mg/dL (7-26); BUN/CREATININE RATIO 11 (6-25); CALCIUM 8.3 mg/dL (8.4-10.2); CARBON DIOXIDE 31 mmol/L (22-29); CHLORIDE 95 mmol/L (98-107); CREATINE KINASE 74 IU/L (29-168); CREATININE, SERUM 0.64 mg/dL (0.57-1.11); EST GLOMERULAR FILTRATION RATE > 60 ML/MIN (60-); GLUCOSE 125 mg/dL (74-118); POTASSIUM 4.2 mmol/L (3.5-5.1); SODIUM 134 mmol/L (136-145)
[2020-10-29] MEDS ORDERED: METHYLPREDNISOLONE SOD SUCC 125 MG/2ML VIAL IV ONE (15:00)
[2020-10-29] MEDS ORDERED: NALOXONE HCL INJ 0.4 MG/ML AMP ONE (16:29)
[2020-10-29] MEDS ORDERED: CEFEPIME HCL 1GM 1 GM in SODIUM CHLORIDE 0.9% 50ML 50 ML IV STA (16:41)
[2020-10-29 17:42] LABS: ABG HCO3 36 mmol/L (22-26); ABG PCO2 77 mmHg (35-45); ABG PH 7.28 (7.35-7.45); ABG PO2 82 mmHg (80-105); ABG TCO2 38
[2020-10-29] MEDS ORDERED: TRAMADOL HCL 50 MG TAB PO PRN (19:45)
[2020-10-29] MEDS ORDERED: ACETAMINOPHEN 325 MG TAB PO PRN (19:45)
[2020-10-29 21:55] LABS: ABG HCO3 36 mmol/L (22-26); ABG PCO2 68 mmHg (35-45); ABG PH 7.33 (7.35-7.45); ABG PO2 66 mmHg (80-105); ABG TCO2 38
[2020-10-30] VITALS (16 sets, daily range): BP systolic 108–140; BP diastolic 54–87
[2020-10-30] MEDS: ALBUTEROL/IPRATROPIUM 3 ML NEB NEB SCH ×3 (01:00→13:00)
[2020-10-30 06:13] LABS: HEMATOCRIT 42.4 % (34.2-44.1); HEMOGLOBIN 12.7 g/dL (12.0-16.0); LYMPHOCYTES # (AUTO) 1.5 (1.0-3.2); LYMPHOCYTES % 29.7 % (18.0-39.1); MEAN CORPUSCULAR HEMOGLOBIN 24.7 pg (28-32); MEAN CORPUSCULAR VOLUME 82.3 fL (81-99); MONOCYTES # (AUTO) 0.6 (0.2-0.8); MONOCYTES % 12.4 % (4.4-11.3); NEUTROPHILS # (AUTO) 2.9 (2.1-6.9); NEUTROPHILS % 57.7 % (38.7-80.0); PLATELET COUNT 322 x10e3/uL (140-360); RED BLOOD COUNT 5.15 x10e6/uL (3.6-5.1); RED CELL DISTRIBUTION WIDTH 18.7 % (11.7-14.4)
[2020-10-30 06:44] LABS: ALANINE AMINOTRANSFERASE 9 IU/L (0-55); ALBUMIN 3.6 g/dL (3.5-5.0); ALBUMIN/GLOBULIN RATIO 1.2 (0.8-2.0); ALKALINE PHOSPHATASE 85 IU/L (40-150); ANION GAP 13.4 mmol/L (8-16); BLOOD UREA NITROGEN 7 mg/dL (7-26); BUN/CREATININE RATIO 13 (6-25); CALCIUM 8.8 mg/dL (8.4-10.2); CARBON DIOXIDE 29 mmol/L (22-29); CHLORIDE 100 mmol/L (98-107); CREATININE, SERUM 0.55 mg/dL (0.57-1.11); EST GLOMERULAR FILTRATION RATE > 60 ML/MIN (60-); GLUCOSE 113 mg/dL (74-118); POTASSIUM 4.4 mmol/L (3.5-5.1); SODIUM 138 mmol/L (136-145)
[2020-10-30] MEDS ORDERED: ALBUTEROL SULF 0.083% NEB SOLN 3 ML NEB NEB SCH (08:30)
[2020-10-30] MEDS: GABAPENTIN 300 MG CAP PO SCH ×3 (09:15→21:02)
[2020-10-30] MEDS ORDERED: SIMETHICONE 80 MG CHEW PO PRN (10:00)
[2020-10-30] MEDS ORDERED: ALBUTEROL SULFATE HFA 8GM INHALATION AEROSOL INH PRN (10:00)
[2020-10-30] MEDS: NICOTINE 21 MG/EA PATCH TOP SCH (10:09)
[2020-10-30] MEDS ORDERED: HYDROCODONE/APAP 5MG-325MG TAB PO SCH ×2 (10:30→15:00)
[2020-10-30] MEDS ORDERED: HYDROCODONE/APAP 10MG-325MG TAB PO ONE (13:00)
[2020-10-30] MEDS: HYDROCODONE/APAP 10MG-325MG TAB PO PRN (18:39)
[2020-10-30] MEDS: ATORVASTATIN 20 MG TAB PO SCH (21:00)
[2020-10-31] VITALS (9 sets, daily range): BP systolic 102–122; BP diastolic 56–74
[2020-10-31] MEDS: HYDROCODONE/APAP 10MG-325MG TAB PO PRN ×5 (00:42→21:28)
[2020-10-31] MEDS: GABAPENTIN 300 MG CAP PO SCH ×3 (08:09→21:04)
[2020-10-31] MEDS: NICOTINE 21 MG/EA PATCH TOP SCH (08:10)
[2020-10-31] MEDS ORDERED: SENOKOT-S TABL1 EACH PO (08:18)
[2020-10-31] MEDS: SENNA-S TABLET PO SCH (09:13)
[2020-10-31] MEDS ORDERED: METHOCARBAMOL 750 MG TAB PO SCH (13:00)
[2020-10-31] MEDS: METHOCARBAMOL 500 MG TAB PO SCH (17:12)
[2020-10-31] MEDS: ATORVASTATIN 20 MG TAB PO SCH ×2 (21:00→21:03)
[2020-11-01 01:31] VITALS: BP 91/59
[2020-11-01] MEDS: HYDROCODONE/APAP 10MG-325MG TAB PO PRN ×2 (01:41→05:47)
[2020-11-01 05:23] VITALS: BP 122/74
[2020-11-01 07:40] VITALS: BP 115/66
[2020-11-01 08:40] VITALS: BP 115/66
[2020-11-01] MEDS: GABAPENTIN 300 MG CAP PO SCH (09:00)
[2020-11-01] MEDS: SENNA-S TABLET PO SCH (09:00)
[2020-11-01] MEDS: NICOTINE 21 MG/EA PATCH TOP SCH (09:00)
[2020-11-01] MEDS: METHOCARBAMOL 500 MG TAB PO SCH (09:00)
== END 2020-11-01 09:30 | disposition home or self-care (01) | DRG 190 ==
LOC: ER 14:10 → ERHOLD 17:38 → ICU 17:42 → MED/SURG2 10-31 11:16
PROVIDERS: ADMIT Internal Medicine; ATTEND Internal Medicine
DX: J44.1 Chronic obstructive pulmonary disease with (acute) exacerbation (principal); J96.02 Acute respiratory failure with hypercapnia; J96.01 Acute respiratory failure with hypoxia; M79.7 Fibromyalgia; E78.5 Hyperlipidemia, unspecified; T50.7X1A Poisoning by analeptics and opioid receptor antagonists, accidental (unintentional), initial encounter; F41.9 Anxiety disorder, unspecified; F17.200 Nicotine dependence, unspecified, uncomplicated; R25.1 Tremor, unspecified; Z20.822 Contact with and (suspected) exposure to COVID-19
CPT/HCPCS: 36415; 36600; 70450; 71045; 80053; 82550; 82553; 82805; 83605; 83880; 84484; 85025; 87040; 94640; 94660; 96360; 99284; J0692; J2310; J2930; U0002

== ENCOUNTER 2022-01-13 21:56 | Inpatient (IN) | payer MEDICARE ==
[~2022-01-13] VITALS: Ht 170.2 cm; Wt 64.4 kg
[~2022-01-13 21:56] MED LIST changes: +SENOKOT-S TABL1 EACH PO
[2022-01-13] MEDS ORDERED: ONDANSETRON HCL INJ 2MG/ML 2ML 2 MG/ML VIAL IV STA (22:10)
[2022-01-13 22:14] LABS: BASOPHILS % 0.2 % (0.0-1.0); EOSINOPHILS % 0.2 % (0.0-6.0); HEMATOCRIT 44.7 % (34.2-44.1); HEMOGLOBIN 13.5 g/dL (12.0-16.0); LYMPHOCYTES # (AUTO) 2.3 (1.0-3.2); LYMPHOCYTES % 24.2 % (18.0-39.1); MEAN CORPUSCULAR HEMOGLOBIN 23.3 pg (28-32); MEAN CORPUSCULAR HGB CONC 30.2 g/dL (31-35); MEAN CORPUSCULAR VOLUME 77.2 fL (81-99); MONOCYTES # (AUTO) 0.7 (0.2-0.8); MONOCYTES % 7.7 % (4.4-11.3); NEUTROPHILS # (AUTO) 6.5 (2.1-6.9); NEUTROPHILS % 67.5 % (38.7-80.0); PLATELET COUNT 387 x10e3/uL (140-360); RED BLOOD COUNT 5.79 x10e6/uL (3.6-5.1); RED CELL DISTRIBUTION WIDTH 19.7 % (11.7-14.4)
[2022-01-13] MEDS ORDERED: SODIUM CHLORIDE 0.9% 1000ML 1,000 ML IV ONE (22:15)
[2022-01-13] MEDS ORDERED: Morphine 4mg Syringe 4 MG/ML INJ IV ONE (22:15)
[2022-01-13 22:33] LABS: ALANINE AMINOTRANSFERASE 11 IU/L (0-55); ALBUMIN 4.2 g/dL (3.5-5.0); ALBUMIN/GLOBULIN RATIO 1.4 (0.8-2.0); ALKALINE PHOSPHATASE 93 IU/L (40-150); ANION GAP 14.7 mmol/L (8-16); BLOOD UREA NITROGEN < 5 mg/dL (7-26); CALCIUM 8.9 mg/dL (8.4-10.2); CARBON DIOXIDE 24 mmol/L (22-29); CHLORIDE 89 mmol/L (98-107); CREATINE KINASE 88 IU/L (29-168); CREATININE, SERUM 0.58 mg/dL (0.57-1.11); GLUCOSE 140 mg/dL (74-118); POTASSIUM 3.7 mmol/L (3.5-5.1); SODIUM 124 mmol/L (136-145)
[2022-01-13 22:35] LABS: BUN/CREATININE RATIO 9 (6-25)
[2022-01-13 22:41] LABS: AMYLASE 27 U/L (25-125); LIPASE 30 U/L (8-78)
[2022-01-13] MEDS ORDERED: IOPAMIDOL 370 MG/ML 100 ML INFUS..BTL INJ ONE (22:58)
[2022-01-13 23:05] LABS: CLARITY,URINE CLEAR (CLEAR); COLOR,URINE YELLOW (YELLOW); KETONES,URINE NEGATIVE (NEGATIVE); LEUKOCYTE ESTERASE ,URINE TRACE (NEGATIVE); NITRITE,URINE NEGATIVE (NEGATIVE); PROTEIN,URINE DIPSTICK NEGATIVE (NEGATIVE); URINE UROBILINOGEN 0.2 mg/dL (0.2 - 1)
[2022-01-13 23:11] LABS: BACTERIA,URINE FEW /HPF; EPITHELIAL CELLS,URINE FEW /LPF; RBC,URINE 0-5 /HPF (0-5)
[2022-01-13] MEDS ORDERED: METOCLOPRAMIDE HCL 10 MG/2ML VIAL IV ONE (23:30)
[2022-01-13] MEDS ORDERED: METOCLOPRAMIDE HCL 10 MG/2ML VIAL ONE (23:31)
[2022-01-14] VITALS (9 sets, daily range): BP systolic 147–175; BP diastolic 82–94
[2022-01-14] MEDS ORDERED: SODIUM CHLORIDE 0.9% 1000ML 1,000 ML ONE (00:18)
[2022-01-14] MEDS: SODIUM CHLORIDE 0.9% 1000ML 1,000 ML IV SCH ×3 (00:25→21:53)
[2022-01-14] MEDS: Morphine 2mg Syringe 2 MG/ML SYR IV PRN ×3 (02:48→19:06)
[2022-01-14] MEDS: ONDANSETRON HCL INJ 2MG/ML 2ML 2 MG/ML VIAL IV PRN ×2 (02:48→06:50)
[2022-01-14 10:22] LABS: CREATINE KINASE MB 2.9 ng/mL (0-5.0)
[2022-01-14] MEDS ORDERED: ACETAMINOPHEN 325 MG TAB PO PRN (10:30)
[2022-01-14 10:34] LABS: ANION GAP 15.5 mmol/L (8-16); BLOOD UREA NITROGEN < 5 mg/dL (7-26); CALCIUM 8.8 mg/dL (8.4-10.2); CARBON DIOXIDE 26 mmol/L (22-29); CHLORIDE 86 mmol/L (98-107); CREATININE, SERUM 0.61 mg/dL (0.57-1.11); GLUCOSE 113 mg/dL (74-118); POTASSIUM 3.5 mmol/L (3.5-5.1); SODIUM 124 mmol/L (136-145)
[2022-01-14 10:36] LABS: BUN/CREATININE RATIO 8 (6-25)
[2022-01-14] MEDS ORDERED: SENNA-S TABLET PO PRN (10:45)
[2022-01-14] MEDS: METHOCARBAMOL 750 MG TAB PO SCH ×4 (11:19→21:53)
[2022-01-14] MEDS: HYDROCODONE/APAP 10MG-325MG TAB PO PRN ×3 (11:19→21:53)
[2022-01-14] MEDS: PROMETHAZINE 12.5MG/ NACL 0.9% 12.5 MG/50 ML BAG IV PRN ×2 (12:09→21:53)
[2022-01-14] MEDS: ENOXAPARIN SOD INJ 40 MG/0.4 ML SYR SC SCH (17:29)
[2022-01-14] MEDS: METRONIDAZOLE 500MG/NS 100ML 100 ML IV SCH ×2 (17:34→21:53)
[2022-01-14] MEDS: FAMOTIDINE 20 MG/2 ML VIAL IV SCH (17:35)
[2022-01-14 18:24] LABS: CREATINE KINASE MB 2.9 ng/mL (0-5.0)
[2022-01-14] MEDS: LORAZEPAM 1 MG TAB PO PRN (21:53)
[2022-01-14] MEDS: GABAPENTIN 400 MG CAP PO SCH (21:53)
[2022-01-15] VITALS (8 sets, daily range): BP systolic 133–159; BP diastolic 85–95
[2022-01-15] MEDS: PROMETHAZINE 12.5MG/ NACL 0.9% 12.5 MG/50 ML BAG IV PRN ×3 (04:07→19:30)
[2022-01-15] MEDS: HYDROCODONE/APAP 10MG-325MG TAB PO PRN ×4 (04:07→21:29)
[2022-01-15 05:30] LABS: BASOPHILS % 0.2 % (0.0-1.0); EOSINOPHILS % 0.4 % (0.0-6.0); HEMATOCRIT 47.8 % (34.2-44.1); HEMOGLOBIN 14.4 g/dL (12.0-16.0); LYMPHOCYTES # (AUTO) 2.1 (1.0-3.2); LYMPHOCYTES % 19.1 % (18.0-39.1); MEAN CORPUSCULAR HEMOGLOBIN 23.1 pg (28-32); MEAN CORPUSCULAR HGB CONC 30.1 g/dL (31-35); MEAN CORPUSCULAR VOLUME 76.6 fL (81-99); MONOCYTES # (AUTO) 0.9 (0.2-0.8); MONOCYTES % 8.3 % (4.4-11.3); NEUTROPHILS # (AUTO) 7.9 (2.1-6.9); NEUTROPHILS % 71.5 % (38.7-80.0); PLATELET COUNT 352 x10e3/uL (140-360); RED BLOOD COUNT 6.24 x10e6/uL (3.6-5.1); RED CELL DISTRIBUTION WIDTH 19.3 % (11.7-14.4)
[2022-01-15 05:57] LABS: ALANINE AMINOTRANSFERASE 9 IU/L (0-55); ALBUMIN 3.5 g/dL (3.5-5.0); ALBUMIN/GLOBULIN RATIO 1.1 (0.8-2.0); ALKALINE PHOSPHATASE 89 IU/L (40-150); ANION GAP 17.3 mmol/L (8-16); BLOOD UREA NITROGEN < 5 mg/dL (7-26); CALCIUM 8.6 mg/dL (8.4-10.2); CARBON DIOXIDE 22 mmol/L (22-29); CHLORIDE 86 mmol/L (98-107); CREATININE, SERUM 0.54 mg/dL (0.57-1.11); GLUCOSE 95 mg/dL (74-118); POTASSIUM 3.3 mmol/L (3.5-5.1); SODIUM 122 mmol/L (136-145)
[2022-01-15 06:07] LABS: BUN/CREATININE RATIO 9 (6-25)
[2022-01-15] MEDS: SODIUM CHLORIDE 0.9% 1000ML 1,000 ML IV SCH ×2 (06:15→17:14)
[2022-01-15] MEDS: METRONIDAZOLE 500MG/NS 100ML 100 ML IV SCH ×3 (06:15→21:29)
[2022-01-15] MEDS: FAMOTIDINE 20 MG/2 ML VIAL IV SCH ×2 (08:54→17:14)
[2022-01-15] MEDS: SODIUM CHLORIDE 1 GM TAB PO SCH ×3 (08:54→21:29)
[2022-01-15] MEDS: METHOCARBAMOL 750 MG TAB PO SCH ×4 (08:55→21:29)
[2022-01-15] MEDS: GABAPENTIN 300 MG CAP PO SCH (08:55)
[2022-01-15 09:44] LABS: BLOOD UREA NITROGEN < 5 mg/dL (7-26); GLUCOSE 85 mg/dL (74-118); OSMOLALITY,SERUM 240 mOsm/kg (278-305); SODIUM 121 mmol/L (136-145)
[2022-01-15] MEDS: ENOXAPARIN SOD INJ 40 MG/0.4 ML SYR SC SCH (17:15)
[2022-01-15] MEDS: LORAZEPAM 1 MG TAB PO PRN (19:30)
[2022-01-15] MEDS: GABAPENTIN 400 MG CAP PO SCH (21:29)
[2022-01-16] VITALS (9 sets, daily range): BP systolic 115–169; BP diastolic 76–97
[2022-01-16] MEDS: PROMETHAZINE 12.5MG/ NACL 0.9% 12.5 MG/50 ML BAG IV PRN ×2 (01:40→07:22)
[2022-01-16] MEDS: HYDROCODONE/APAP 10MG-325MG TAB PO PRN ×6 (01:40→21:35)
[2022-01-16] MEDS: SODIUM CHLORIDE 0.9% 1000ML 1,000 ML IV SCH ×3 (04:05→21:35)
[2022-01-16] MEDS: METRONIDAZOLE 500MG/NS 100ML 100 ML IV SCH ×3 (05:40→21:35)
[2022-01-16] MEDS: SODIUM CHLORIDE 1 GM TAB PO SCH ×3 (05:40→21:35)
[2022-01-16] MEDS: METHOCARBAMOL 750 MG TAB PO SCH ×4 (05:41→20:00)
[2022-01-16] MEDS: FAMOTIDINE 20 MG/2 ML VIAL IV SCH ×2 (09:21→17:39)
[2022-01-16] MEDS: GABAPENTIN 300 MG CAP PO SCH (09:22)
[2022-01-16 09:52] LABS: ANION GAP 14.8 mmol/L (8-16); CALCIUM 8.6 mg/dL (8.4-10.2); CREATININE, SERUM 0.56 mg/dL (0.57-1.11)
[2022-01-16 10:04] LABS: POTASSIUM 2.8 mmol/L (3.5-5.1)
[2022-01-16] MEDS ORDERED: POTASSIUM CHLORIDE 20MEQ/100ML 100 ML IV ONE (10:07)
[2022-01-16] MEDS ORDERED: POTASSIUM CHLORIDE 20 MEQ TAB CR PO ONE (10:07)
[2022-01-16] MEDS: LORAZEPAM 1 MG TAB PO PRN ×2 (13:36→20:00)
[2022-01-16] MEDS: ENOXAPARIN SOD INJ 40 MG/0.4 ML SYR SC SCH (17:30)
[2022-01-16] MEDS ORDERED: NICOTINE 14 MG/EA PATCH TOP PRN (19:45)
[2022-01-16] MEDS: GABAPENTIN 400 MG CAP PO SCH (20:00)
[2022-01-17] MEDS: HYDROCODONE/APAP 10MG-325MG TAB PO PRN ×3 (01:37→09:22)
[2022-01-17] MEDS: LORAZEPAM 1 MG TAB PO PRN (04:17)
[2022-01-17] MEDS: SODIUM CHLORIDE 1 GM TAB PO SCH (05:29)
[2022-01-17] MEDS: METRONIDAZOLE 500MG/NS 100ML 100 ML IV SCH (05:29)
[2022-01-17 05:40] VITALS: BP 140/85
[2022-01-17 07:38] VITALS: BP 148/85
[2022-01-17 08:24] VITALS: BP 148/85
[2022-01-17] MEDS ORDERED: METRONIDAZOLE500 MG PO (08:28)
[2022-01-17] MEDS ORDERED: SODIUM CHLORIDE1 GM PO (08:28)
[2022-01-17] MEDS ORDERED: ONDANSETRON ODT4 MG PO (08:29)
[2022-01-17 08:56] LABS: BASOPHILS % 0.4 % (0.0-1.0); EOSINOPHILS # (AUTO) 0.1 (0.0-0.4); EOSINOPHILS % 1.7 % (0.0-6.0); HEMOGLOBIN 13.2 g/dL (12.0-16.0); LYMPHOCYTES % 42.3 % (18.0-39.1); MEAN CORPUSCULAR HEMOGLOBIN 23.6 pg (28-32); MEAN CORPUSCULAR VOLUME 78.6 fL (81-99); MONOCYTES # (AUTO) 0.8 (0.2-0.8); MONOCYTES % 10.8 % (4.4-11.3); NEUTROPHILS # (AUTO) 3.2 (2.1-6.9); NEUTROPHILS % 44.7 % (38.7-80.0); PLATELET COUNT 313 x10e3/uL (140-360); RED CELL DISTRIBUTION WIDTH 19.5 % (11.7-14.4)
[2022-01-17] MEDS ORDERED: ONDANSETRON HCL 4 MG ORAL DISINTEGRATING TAB PO PRN (09:00)
[2022-01-17] MEDS: GABAPENTIN 300 MG CAP PO SCH (09:19)
[2022-01-17] MEDS: FAMOTIDINE 20 MG/2 ML VIAL IV SCH (09:19)
[2022-01-17] MEDS: METHOCARBAMOL 750 MG TAB PO SCH (09:20)
[2022-01-17 09:48] LABS: ANION GAP 10.5 mmol/L (8-16); CALCIUM 8.5 mg/dL (8.4-10.2); CREATININE, SERUM 0.57 mg/dL (0.57-1.11); POTASSIUM 3.5 mmol/L (3.5-5.1)
[2022-01-17] MEDS ORDERED: METRONIDAZOLE 500 MG TAB PO SCH (14:00)
[2022-01-17] MEDS ORDERED: FAMOTIDINE 20 MG TAB PO SCH (16:30)
== END 2022-01-17 10:41 | disposition home or self-care (01) | DRG 372 ==
LOC: ER 22:04 → ERHOLD 01-14 01:13 → MED/SURG2 01-14 03:12 → OBSVTOIN 01-15 08:34
PROVIDERS: ADMIT Internal Medicine; ATTEND Internal Medicine
DX: A04.9 Bacterial intestinal infection, unspecified (principal); E87.1 Hypo-osmolality and hyponatremia; N39.0 Urinary tract infection, site not specified; R07.9 Chest pain, unspecified; F41.9 Anxiety disorder, unspecified; F17.200 Nicotine dependence, unspecified, uncomplicated; E87.6 Hypokalemia; Z98.84 Bariatric surgery status; Z88.1 Allergy status to other antibiotic agents; Z88.8 Allergy status to other drugs, medicaments and biological substances; J44.9 Chronic obstructive pulmonary disease, unspecified; Z20.822 Contact with and (suspected) exposure to COVID-19
CPT/HCPCS: 36415; 71045; 74177; 80048; 80053; 81001; 82150; 82550; 82553; 82947; 83690; 83935; 84132; 84295; 84484; 84520; 85025; 93005; 96360; 99285; G0378; J0696; J1650; J2270; J2405; J2550; J2765; J3480; J7030; Q9967; U0002

== ENCOUNTER 2022-05-06 20:53 | Emergency (ER) | payer MEDICARE ==
[~2022-05-06] VITALS: Ht 170.2 cm; Wt 64.4 kg
[~2022-05-06 20:53] MED LIST changes: +DICYCLOMINE HCL20 MG PO; +METRONIDAZOLE500 MG PO; +ONDANSETRON ODT4 MG PO; +PROMETHAZINE HC25 M1 PO; +SODIUM CHLORIDE1 GM PO
[2022-05-06] MEDS ORDERED: SODIUM CHLORIDE 0.9% 1000ML 1,000 ML IV STA (21:20)
[2022-05-06] MEDS ORDERED: ONDANSETRON HCL INJ 2MG/ML 2ML 2 MG/ML VIAL IV STA ×3 (21:20→23:50)
[2022-05-06 21:55] LABS: BASOPHILS % 0.2 % (0.0-1.0); EOSINOPHILS % 0.5 % (0.0-6.0); HEMATOCRIT 41.1 % (34.2-44.1); HEMOGLOBIN 12.9 g/dL (12.0-16.0); LYMPHOCYTES # (AUTO) 2.3 (1.0-3.2); LYMPHOCYTES % 26.6 % (18.0-39.1); MEAN CORPUSCULAR HEMOGLOBIN 24.5 pg (28-32); MEAN CORPUSCULAR HGB CONC 31.4 g/dL (31-35); MONOCYTES # (AUTO) 0.6 (0.2-0.8); MONOCYTES % 6.7 % (4.4-11.3); NEUTROPHILS # (AUTO) 5.7 (2.1-6.9); NEUTROPHILS % 65.8 % (38.7-80.0); PLATELET COUNT 207 x10e3/uL (140-360); RED BLOOD COUNT 5.27 x10e6/uL (3.6-5.1); RED CELL DISTRIBUTION WIDTH 22.5 % (11.7-14.4)
[2022-05-06] MEDS ORDERED: Morphine 4mg INJECTION 4 MG/ML INJ IV STA ×2 (22:03→23:50)
[2022-05-06 22:11] LABS: ALBUMIN/GLOBULIN RATIO 1.7 (0.8-2.0); ANION GAP 18.7 mmol/L (8-16); CALCIUM 8.5 mg/dL (8.4-10.2); CREATININE, SERUM 0.59 mg/dL (0.57-1.11); POTASSIUM 3.7 mmol/L (3.5-5.1)
[2022-05-06] MEDS ORDERED: DIATRIZOATE MEGL/DIATRIZOA SOD 30 ML BTL PO ONE (22:18)
[2022-05-06] MEDS ORDERED: METOCLOPRAMIDE HCL 10 MG/2ML VIAL IV STA (22:43)
[2022-05-06 23:30] LABS: CLARITY,URINE CLOUDY (CLEAR); COLOR,URINE YELLOW (YELLOW); KETONES,URINE NEGATIVE (NEGATIVE); LEUKOCYTE ESTERASE ,URINE TRACE (NEGATIVE); NITRITE,URINE NEGATIVE (NEGATIVE); PROTEIN,URINE DIPSTICK NEGATIVE (NEGATIVE); URINE UROBILINOGEN 0.2 mg/dL (0.2 - 1)
[2022-05-06 23:53] LABS: AMORPHOUS SEDIMENT,URINE MANY (FEW); BACTERIA,URINE MODERATE /HPF; EPITHELIAL CELLS,URINE FEW /LPF; RBC,URINE 0-5 /HPF (0-5); WBC,URINE (MAN) 0-5 /HPF (0-5)
[2022-05-06] MEDS ORDERED: IOPAMIDOL 370 MG/ML 100 ML INFUS..BTL INJ ONE (23:56)
[2022-05-07 01:05] VITALS: BP 168/94
== END 2022-05-07 01:10 | disposition home or self-care (01) ==
LOC: ER 20:59
DX: R11.2 Nausea with vomiting, unspecified (principal); R10.13 Epigastric pain; I10 Essential (primary) hypertension; J44.9 Chronic obstructive pulmonary disease, unspecified; F41.9 Anxiety disorder, unspecified; M79.7 Fibromyalgia; M81.0 Age-related osteoporosis without current pathological fracture; M54.9 Dorsalgia, unspecified; G89.29 Other chronic pain; Z20.822 Contact with and (suspected) exposure to COVID-19; Z98.84 Bariatric surgery status
CPT/HCPCS: 36415; 74177; 80053; 81001; 83690; 85025; 99284; J2270 ×2; J2405 ×2; J2765; J7030; Q9963; Q9967; U0002; 0223U

== ENCOUNTER 2023-01-09 16:41 | Emergency (ER) | payer MEDICARE ==
[~2023-01-09] VITALS: Ht 170.2 cm; Wt 64.4 kg
[2023-01-09] MEDS ORDERED: SODIUM CHLORIDE 0.9% 1000ML 1,000 ML IV STA (17:09)
[2023-01-09] MEDS ORDERED: ONDANSETRON HCL INJ 2MG/ML 2ML 2 MG/ML VIAL IV PRN (17:15)
[2023-01-09] MEDS ORDERED: PROMETHAZINE 12.5MG/ NACL 0.9% 12.5 MG/50 ML BAG IV ONE (17:15)
[2023-01-09 17:20] LABS: BASOPHILS % 0.2 % (0.0-1.0); EOSINOPHILS # (AUTO) 0.1 (0.0-0.4); EOSINOPHILS % 1.2 % (0.0-6.0); HEMATOCRIT 40.2 % (34.2-44.1); HEMOGLOBIN 13.1 g/dL (12.0-16.0); LYMPHOCYTES # (AUTO) 2.8 (1.0-3.2); LYMPHOCYTES % 32.4 % (18.0-39.1); MEAN CORPUSCULAR HEMOGLOBIN 26.3 pg (28-32); MEAN CORPUSCULAR HGB CONC 32.6 g/dL (31-35); MEAN CORPUSCULAR VOLUME 80.7 fL (81-99); MONOCYTES # (AUTO) 0.6 (0.2-0.8); MONOCYTES % 6.9 % (4.4-11.3); NEUTROPHILS # (AUTO) 5.1 (2.1-6.9); NEUTROPHILS % 59.1 % (38.7-80.0); PLATELET COUNT 376 x10e3/uL (140-360); RED BLOOD COUNT 4.98 x10e6/uL (3.6-5.1); RED CELL DISTRIBUTION WIDTH 22.5 % (11.7-14.4)
[2023-01-09 17:32] LABS: ALBUMIN 3.6 g/dL (3.5-5.0); ALBUMIN/GLOBULIN RATIO 1.2 (0.8-2.0); ANION GAP 13.7 mmol/L (8-16); CALCIUM 8.7 mg/dL (8.4-10.2); CREATININE, SERUM 0.59 mg/dL (0.57-1.11); POTASSIUM 3.7 mmol/L (3.5-5.1)
[2023-01-09] MEDS ORDERED: KETOROLAC TROMETHAMINE 30 MG/ML VIAL IV STA (17:47)
[2023-01-09] MEDS ORDERED: DICYCLOMINE HCL 20 MG/2 ML VIAL IM ONE (18:00)
[2023-01-09 18:46] LABS: CLARITY,URINE SL CLOUDY (CLEAR); COLOR,URINE YELLOW (YELLOW); KETONES,URINE NEGATIVE (NEGATIVE); LEUKOCYTE ESTERASE ,URINE NEGATIVE (NEGATIVE); NITRITE,URINE NEGATIVE (NEGATIVE); PROTEIN,URINE DIPSTICK NEGATIVE (NEGATIVE); URINE UROBILINOGEN 0.2 mg/dL (0.2 - 1)
[2023-01-09 18:58] LABS: BACTERIA,URINE MODERATE /HPF; EPITHELIAL CELLS,URINE FEW /LPF; WBC,URINE (MAN) 0-5 /HPF (0-5)
[2023-01-09] MEDS ORDERED: IOPAMIDOL 370 MG/ML 100 ML INFUS..BTL INJ ONE (19:10)
[2023-01-09] MEDS ORDERED: ONDANSETRON HCL INJ 2MG/ML 2ML 2 MG/ML VIAL IV STA (20:05)
[2023-01-09] MEDS ORDERED: Morphine 2mg Syringe 2 MG/ML SYR IV STA (20:05)
[2023-01-09] MEDS ORDERED: METRONIDAZOLE500 MG PO (20:26)
[2023-01-09] MEDS ORDERED: PEPCID20 MG PO (20:26)
[2023-01-09] MEDS ORDERED: PROMETHAZINE HC25 M1 PO (20:26)
[2023-01-09 21:38] VITALS: BP 172/105; PULSE 87; RESP 19; TEMP 98; O2SAT 99
== END 2023-01-09 21:40 | disposition home or self-care (01) ==
LOC: ER 18:23
DX: R11.2 Nausea with vomiting, unspecified (principal); K52.9 Noninfective gastroenteritis and colitis, unspecified; I10 Essential (primary) hypertension; J44.9 Chronic obstructive pulmonary disease, unspecified; M81.0 Age-related osteoporosis without current pathological fracture; M79.7 Fibromyalgia; F41.9 Anxiety disorder, unspecified; M54.9 Dorsalgia, unspecified; G89.29 Other chronic pain; R94.31 Abnormal electrocardiogram [ECG] [EKG]
CPT/HCPCS: 36415; 74177; 80053; 81001; 83690; 85025; 93005; 99284; J0500; J1885; J2270; J2405; J2550; J7030; Q9967

== ENCOUNTER 2023-02-11 18:32 | Emergency (ER) | payer MEDICARE ==
[~2023-02-11] VITALS: Ht 170.2 cm; Wt 62.1 kg
[~2023-02-11 18:32] MED LIST changes: +PEPCID20 MG PO
[2023-02-11] MEDS ORDERED: ONDANSETRON HCL INJ 2MG/ML 2ML 2 MG/ML VIAL IV STA (18:53)
[2023-02-11] MEDS ORDERED: ACETAMINOPHEN 1000 MG/100 ML IV STA (18:53)
[2023-02-11 19:01] LABS: BASOPHILS % 0.3 % (0.0-1.0); EOSINOPHILS # (AUTO) 0.1 (0.0-0.4); EOSINOPHILS % 0.6 % (0.0-6.0); HEMATOCRIT 39.7 % (34.2-44.1); LYMPHOCYTES # (AUTO) 3.5 (1.0-3.2); LYMPHOCYTES % 44.3 % (18.0-39.1); MEAN CORPUSCULAR HEMOGLOBIN 25.8 pg (28-32); MEAN CORPUSCULAR HGB CONC 32.7 g/dL (31-35); MEAN CORPUSCULAR VOLUME 78.8 fL (81-99); MONOCYTES # (AUTO) 0.7 (0.2-0.8); MONOCYTES % 9.3 % (4.4-11.3); NEUTROPHILS # (AUTO) 3.6 (2.1-6.9); NEUTROPHILS % 45.2 % (38.7-80.0); PLATELET COUNT 355 x10e3/uL (140-360); RED BLOOD COUNT 5.04 x10e6/uL (3.6-5.1); RED CELL DISTRIBUTION WIDTH 21.9 % (11.7-14.4)
[2023-02-11 19:16] LABS: ALANINE AMINOTRANSFERASE 12 IU/L (0-55); ALBUMIN 3.4 g/dL (3.5-5.0); ALBUMIN/GLOBULIN RATIO 1.1 (0.8-2.0); ALKALINE PHOSPHATASE 125 IU/L (40-150); ANION GAP 14.7 mmol/L (8-16); BLOOD UREA NITROGEN < 5 mg/dL (7-26); CALCIUM 8.8 mg/dL (8.4-10.2); CARBON DIOXIDE 23 mmol/L (22-29); CHLORIDE 102 mmol/L (98-107); CREATININE, SERUM 0.61 mg/dL (0.57-1.11); GLUCOSE 100 mg/dL (74-118); POTASSIUM 3.7 mmol/L (3.5-5.1); SODIUM 136 mmol/L (136-145)
[2023-02-11 19:17] LABS: BUN/CREATININE RATIO 8 (6-25); LIPASE 36 U/L (8-78)
[2023-02-11] MEDS ORDERED: IOPAMIDOL 370 MG/ML 100 ML INFUS..BTL INJ ONE (19:23)
[2023-02-11] MEDS ORDERED: KETOROLAC TROMETHAMINE 30 MG/ML VIAL IV STA (20:12)
[2023-02-11 21:01] VITALS: BP 166/99; PULSE 75; RESP 17; TEMP 98.4; O2SAT 98
[2023-02-11] MEDS ORDERED: PHENERGAN SUPP25 MG PR (21:01)
[2023-02-11] MEDS ORDERED: FIORICET 50-301 EACH PO (21:01)
[2023-02-11] MEDS ORDERED: PANTOPRAZOLE SO40 MG PO (21:01)
== END 2023-02-11 21:12 | disposition home or self-care (01) ==
LOC: ER 18:36
DX: R50.9 Fever, unspecified (principal); R11.2 Nausea with vomiting, unspecified; R51.9 Headache, unspecified; R10.10 Upper abdominal pain, unspecified; R16.0 Hepatomegaly, not elsewhere classified; R94.31 Abnormal electrocardiogram [ECG] [EKG]
CPT/HCPCS: 36415; 70450; 74177; 80053; 83690; 84484; 85025; 93005; 99284; C9113; J0131; J1885; J2405; Q9967

== ENCOUNTER 2023-06-14 13:02 | Emergency (ER) | payer MEDICARE ==
[~2023-06-14] VITALS: Ht 170.2 cm; Wt 62.1 kg
[~2023-06-14 13:02] MED LIST changes: +ALBUTEROL0.63 MG/3 NEB; +FIORICET 50-301 EACH PO; +FLUOXETINE HCL60 MG PO; +GABAPENTIN400 MG PO; +HYDROXYZINE PAM25 MG PO; +PANTOPRAZOLE SO40 MG PO; +PHENERGAN SUPP25 MG PR; +QUETIAPINE FUM100 MG PO
[2023-06-14 13:36] LABS: BASOPHILS % 0.1 % (0.0-1.0); EOSINOPHILS # (AUTO) 0.2 (0.0-0.4); EOSINOPHILS % 1.7 % (0.0-6.0); HEMATOCRIT 36.1 % (34.2-44.1); HEMOGLOBIN 11.6 g/dL (12.0-16.0); LYMPHOCYTES # (AUTO) 3.3 (1.0-3.2); LYMPHOCYTES % 37.9 % (18.0-39.1); MEAN CORPUSCULAR HEMOGLOBIN 26.7 pg (28-32); MEAN CORPUSCULAR HGB CONC 32.1 g/dL (31-35); MONOCYTES # (AUTO) 0.8 (0.2-0.8); MONOCYTES % 9.3 % (4.4-11.3); NEUTROPHILS # (AUTO) 4.4 (2.1-6.9); NEUTROPHILS % 50.9 % (38.7-80.0); PLATELET COUNT 362 x10e3/uL (140-360); RED BLOOD COUNT 4.35 x10e6/uL (3.6-5.1); RED CELL DISTRIBUTION WIDTH 20.2 % (11.7-14.4); WHITE BLOOD COUNT 8.63 x10e3/uL (4.8-10.8)
[2023-06-14 13:59] LABS: ALANINE AMINOTRANSFERASE 10 IU/L (0-55); ALBUMIN 3.7 g/dL (3.5-5.0); ALBUMIN/GLOBULIN RATIO 1.2 (0.8-2.0); ALKALINE PHOSPHATASE 128 IU/L (40-150); ANION GAP 12.9 mmol/L (8-16); BLOOD UREA NITROGEN 14 mg/dL (7-26); BUN/CREATININE RATIO 17 (6-25); CALCIUM 8.7 mg/dL (8.4-10.2); CARBON DIOXIDE 27 mmol/L (22-29); CHLORIDE 98 mmol/L (98-107); CREATINE KINASE 108 IU/L (29-168); CREATININE, SERUM 0.84 mg/dL (0.57-1.11); GLUCOSE 112 mg/dL (74-118); POTASSIUM 4.9 mmol/L (3.5-5.1); SODIUM 133 mmol/L (136-145)
[2023-06-14 15:41] VITALS: O2SAT 91
[2023-06-14 15:55] LABS: LIPASE 41 U/L (8-78)
== END 2023-06-14 15:42 | disposition home or self-care (01) ==
LOC: ER 13:08
DX: R05.9 Cough, unspecified (principal); I10 Essential (primary) hypertension; J44.9 Chronic obstructive pulmonary disease, unspecified; F41.9 Anxiety disorder, unspecified; M54.9 Dorsalgia, unspecified; G89.29 Other chronic pain; M79.7 Fibromyalgia; M81.0 Age-related osteoporosis without current pathological fracture; Z20.822 Contact with and (suspected) exposure to COVID-19; Z98.84 Bariatric surgery status; Z87.19 Personal history of other diseases of the digestive system; F17.200 Nicotine dependence, unspecified, uncomplicated
CPT/HCPCS: 36415; 70450; 71045; 72125; 80053; 82550; 83690; 83735; 83880; 84484; 85025; 93005; 99284; U0002

== ENCOUNTER 2024-08-16 13:05 | Emergency (ER) | payer MEDICARE ==
[~2024-08-16] VITALS: Ht 170.2 cm; Wt 62.1 kg
[2024-08-16 13:10] VITALS: PULSE 70; RESP 16; TEMP 98.2; O2SAT 90
[2024-08-16] MEDS: KETOROLAC TROMETHAMINE 30 MG/ML VIAL IM STA (13:55)
== END 2024-08-16 15:30 | disposition home or self-care (01) ==
LOC: ER 13:18
DX: R10.10 Upper abdominal pain, unspecified (principal); K56.600 Partial intestinal obstruction, unspecified as to cause; K59.00 Constipation, unspecified; R05.9 Cough, unspecified; I10 Essential (primary) hypertension; J44.9 Chronic obstructive pulmonary disease, unspecified; M54.9 Dorsalgia, unspecified; G89.29 Other chronic pain; M79.7 Fibromyalgia; M81.0 Age-related osteoporosis without current pathological fracture; F41.9 Anxiety disorder, unspecified; F32.A Depression, unspecified; Z98.84 Bariatric surgery status
CPT/HCPCS: 74176; 99283; J1885

== ENCOUNTER 2025-01-22 08:01 | Inpatient (IN) | payer MEDICARE ==
[~2025-01-22] VITALS: Ht 175.3 cm; Wt 57.6 kg
[2025-01-22 08:52] LABS: ABG HCO3 37 mmol/L (22-26); ABG PCO2 67 mmHg (35-45); ABG PH 7.35 (7.35-7.45); ABG PO2 75 mmHg (80-105); ABG TCO2 39
[2025-01-22 09:24] LABS: BASOPHILS % 0.2 % (0.0-1.0); EOSINOPHILS # (AUTO) 0.1 (0.0-0.4); EOSINOPHILS % 0.6 % (0.0-6.0); HEMATOCRIT 38.5 % (34.2-44.1); HEMOGLOBIN 11.6 g/dL (12.0-16.0); LYMPHOCYTES # (AUTO) 2.1 (1.0-3.2); LYMPHOCYTES % 21.2 % (18.0-39.1); MEAN CORPUSCULAR HEMOGLOBIN 25.2 pg (28-32); MEAN CORPUSCULAR HGB CONC 30.1 g/dL (31-35); MEAN CORPUSCULAR VOLUME 83.7 fL (81-99); MONOCYTES # (AUTO) 0.7 (0.2-0.8); MONOCYTES % 7.4 % (4.4-11.3); NEUTROPHILS # (AUTO) 6.8 (2.1-6.9); NEUTROPHILS % 70.4 % (38.7-80.0); PLATELET COUNT 395 x10e3/uL (140-360); RED CELL DISTRIBUTION WIDTH 22.6 % (11.7-14.4); WHITE BLOOD COUNT 9.67 x10e3/uL (4.8-10.8)
[2025-01-22 09:42] LABS: INR 0.89; PARTIAL THROMBOPLASTIN TIME 25.9 seconds (23.8-35.5); PROTHROMBIN TIME 12.9 seconds (11.9-14.5)
[2025-01-22 09:44] LABS: CLARITY,URINE CLEAR (CLEAR); COLOR,URINE YELLOW (YELLOW)
[2025-01-22 09:45] LABS: AMPHETAMINES SCREEN,URINE NEGATIVE (NEGATIVE); BENZODIAZEPINES SCREEN,URINE NEGATIVE (NEGATIVE); BILIRUBIN,URINE NEGATIVE (NEGATIVE); CANNABINOIDS SCREEN,URINE NEGATIVE (NEGATIVE); COCAINE SCREEN,URINE NEGATIVE (NEGATIVE); GLUCOSE, URINE NEGATIVE (NEGATIVE); KETONES,URINE NEGATIVE (NEGATIVE); LEUKOCYTE ESTERASE ,URINE NEGATIVE (NEGATIVE); METHADONE SCREEN, URINE NEGATIVE (NEGATIVE); NITRITE,URINE NEGATIVE (NEGATIVE); OPIATES SCREEN,URINE POSITIVE (NEGATIVE); PH,URINE 5 (5 - 7); PHENCYCLIDINE SCREEN,URINE NEGATIVE (NEGATIVE); PROTEIN,URINE DIPSTICK NEGATIVE (NEGATIVE); URINE UROBILINOGEN 0.2 mg/dL (0.2 - 1)
[2025-01-22 09:47] LABS: CORONAVIRUS COVID-19 AG NEGATIVE (NEGATIVE); INFLUENZA A AG NEGATIVE (NEGATIVE); INFLUENZA B AG NEGATIVE (NEGATIVE)
[2025-01-22 09:52] LABS: ALANINE AMINOTRANSFERASE 11 IU/L (0-55); ALBUMIN 3.8 g/dL (3.5-5.0); ALBUMIN/GLOBULIN RATIO 1.3 (0.8-2.0); ALKALINE PHOSPHATASE 113 IU/L (40-150); ANION GAP 17.6 mmol/L (8-16); BILIRUBIN,TOTAL 0.3 mg/dL (0.2-1.2); BLOOD UREA NITROGEN 12 mg/dL (7-26); BUN/CREATININE RATIO 15 (6-25); CALCIUM 8.7 mg/dL (8.4-10.2); CARBON DIOXIDE 31 mmol/L (22-29); CHLORIDE 87 mmol/L (98-107); CREATINE KINASE 78 IU/L (29-168); CREATININE, SERUM 0.79 mg/dL (0.57-1.11); EST GLOMERULAR FILTRATION RATE 82 ML/MIN (>=60); GLUCOSE 105 mg/dL (74-118); MAGNESIUM 1.9 MG/DL (1.3-2.1); POTASSIUM 3.6 mmol/L (3.5-5.1); SODIUM 132 mmol/L (136-145); TOTAL PROTEIN 6.8 g/dL (6.5-8.1)
[2025-01-22 09:53] LABS: ETHANOL < 10.0 mg/dL (0.0-10.0); SALICYLATE < 5.0 mg/dL (0-30)
[2025-01-22 09:58] LABS: TROPONIN I < 0.001 ng/mL (0-0.300)
[2025-01-22] MEDS: SODIUM CHLORIDE 0.9% 1000ML 1,000 ML IV STA (10:03)
[2025-01-22 10:17] LABS: BACTERIA,URINE FEW /HPF; EPITHELIAL CELLS,URINE FEW /LPF; RBC,URINE 0-5 /HPF (0-5); WBC,URINE (MAN) 0-5 /HPF (0-5)
[2025-01-22] MEDS ORDERED: ONDANSETRON HCL INJ 2MG/ML 2ML 2 MG/ML VIAL IV PRN (11:30)
[2025-01-22 12:17] VITALS: PULSE 72; RESP 22; O2SAT 96
[2025-01-22] MEDS ORDERED: ALBUTEROL/IPRATROPIUM 3 ML NEB ONE (12:37)
[2025-01-22] MEDS: METHYLPREDNISOLONE SOD SUCC 125 MG/2ML VIAL IV STA (12:49)
[2025-01-22 13:17] VITALS: PULSE 78; RESP 21; O2SAT 96
[2025-01-22] MEDS: ALBUTEROL/IPRATROPIUM 3 ML NEB NEB SCH (13:18)
[2025-01-22] MEDS ORDERED: METHYLPREDNISOLONE SOD SUCC 40 MG/ML VIAL 1ML IV SCH (14:00)
[2025-01-22 18:04] LABS: TROPONIN I 0.016 ng/mL (0-0.300)
[2025-01-22] MEDS: HYDROCODONE/APAP 7.5MG-325MG 1 EA TAB PO PRN (19:17)
[2025-01-22 19:19] VITALS: PULSE 91; RESP 20; O2SAT 96
[2025-01-22 19:38] VITALS: TEMP 98.4
[2025-01-22 20:23] VITALS: PULSE 95; RESP 24
[2025-01-22] MEDS: METHYLPREDNISOLONE SOD SUCC 40 MG/ML VIAL 1ML IV SCH (22:15)
[2025-01-22 23:28] VITALS: PULSE 81; RESP 20; O2SAT 98
[2025-01-23] VITALS (13 sets, daily range): BP systolic 128–158; BP diastolic 59–78; PULSE 73–98; RESP 18–20; TEMP 97.6–98.2; O2SAT 93–100
[2025-01-23] MEDS ORDERED: HYDROCHLOROTHIA25 MG PO (05:17)
[2025-01-23] MEDS ORDERED: LASIX10 MG/ML PO (05:18)
[2025-01-23 06:02] LABS: HEMATOCRIT 37.3 % (34.2-44.1); HEMOGLOBIN 11.2 g/dL (12.0-16.0); LYMPHOCYTES # (AUTO) 0.5 (1.0-3.2); LYMPHOCYTES % 11.3 % (18.0-39.1); MEAN CORPUSCULAR HEMOGLOBIN 25.4 pg (28-32); MEAN CORPUSCULAR VOLUME 84.6 fL (81-99); MONOCYTES # (AUTO) 0.1 (0.2-0.8); MONOCYTES % 2.4 % (4.4-11.3); NEUTROPHILS # (AUTO) 3.7 (2.1-6.9); NEUTROPHILS % 86.1 % (38.7-80.0); PLATELET COUNT 419 x10e3/uL (140-360); RED BLOOD COUNT 4.41 x10e6/uL (3.6-5.1); WHITE BLOOD COUNT 4.25 x10e3/uL (4.8-10.8)
[2025-01-23 06:38] LABS: ALBUMIN 3.3 g/dL (3.5-5.0); ANION GAP 16.8 mmol/L (8-16); BILIRUBIN,TOTAL 0.3 mg/dL (0.2-1.2); CALCIUM 9.1 mg/dL (8.4-10.2); CHOL/HDL RATIO 2.6 (3.0-3.6); CREATININE, SERUM 0.69 mg/dL (0.57-1.11); TOTAL PROTEIN 6.6 g/dL (6.5-8.1)
[2025-01-23 06:57] LABS: POTASSIUM 2.8 mmol/L (3.5-5.1)
[2025-01-23 07:17] LABS: TROPONIN I 0.019 ng/mL (0-0.300)
[2025-01-23] MEDS: POTASSIUM CHLORIDE 20 MEQ TAB CR PO ONE (12:16)
[2025-01-23] MEDS ORDERED: PREDNISONE20 MG PO (18:17)
[2025-01-23] MEDS ORDERED: ZITHROMAX500 MG PO (18:17)
[2025-01-23] MEDS ORDERED: MUCINEX DM ER1 EACH PO (18:17)
[2025-01-23] MEDS ORDERED: VENTOLIN HFA18 GM INH (18:17)
[2025-01-28 07:34] LABS: ABG HCO3 37 mmol/L (22-26); ABG PCO2 67 mmHg (35-45); ABG PH 7.35 (7.35-7.45); ABG PO2 75 mmHg (80-105); ABG TCO2 39
== END 2025-01-23 18:35 | disposition home or self-care (01) | DRG 190 ==
LOC: ER 08:07 → ERHOLD 11:27 → MED/SURG2 21:16
PROVIDERS: ADMIT Internal Medicine; ATTEND Internal Medicine
PROC: 4A133R1 Monitoring of Arterial Saturation, Peripheral, Percutaneous Approach (ICD-10-PCS; principal; 2025-01-22)
DX: J44.1 Chronic obstructive pulmonary disease with (acute) exacerbation (principal); J18.9 Pneumonia, unspecified organism; J96.21 Acute and chronic respiratory failure with hypoxia; I10 Essential (primary) hypertension; E87.6 Hypokalemia; F41.9 Anxiety disorder, unspecified; F32.A Depression, unspecified; M54.9 Dorsalgia, unspecified; M81.0 Age-related osteoporosis without current pathological fracture; M79.7 Fibromyalgia; R53.81 Other malaise; R55 Syncope and collapse; R41.82 Altered mental status, unspecified; Z11.52 Encounter for screening for COVID-19; Z90.710 Acquired absence of both cervix and uterus; Z98.84 Bariatric surgery status; Z88.6 Allergy status to analgesic agent; Z88.1 Allergy status to other antibiotic agents
CPT/HCPCS: 36415; 36600; 70450; 71045; 72125; 80053; 80061; 80307; 80320; 80329; 81001; 82550; 82805; 83735; 83880; 84132; 84484; 85025; 85610; 85730; 87040; 87086; 93005; 94640; 94799; 99284; J2543; J2919; J7030; J7050